=== PATIENT | female | born 1950 | race Caucasian/White ===

== ENCOUNTER → 2018-03-19 | Outpatient (CLI) | payer MEDICARE, OTHER ==
[~2018-03-19] MED LIST: ASPIR 8181 M1 PO; ASPIR-LOW81 MG PO; BISOPROLOL-HCT1 EAC2 PO; GLUCOPHAGE500 MG PO; LIPITOR40 MG PO; SYNTHROID100 MCG PO; VALACYCLOVIR500 MG PO; VASOTEC20 MG PO
== END | disposition home or self-care (01) ==
LOC: CDC 11:06
DX: Z01.810 Encounter for preprocedural cardiovascular examination (principal); D36.9 Benign neoplasm, unspecified site; R94.31 Abnormal electrocardiogram [ECG] [EKG]
CPT/HCPCS: 93000